=== PATIENT | female | born 1975 | race Two or more races ===

== ENCOUNTER 2024-09-07 12:11 | Emergency (ER) | payer BC ==
[~2024-09-07] VITALS: Ht 160 cm; Wt 102.5 kg
[2024-09-07 13:08] VITALS: BP 148/75; O2SAT 97
[2024-09-07] MEDS ORDERED: ALTACE5 MG PO (13:13)
[2024-09-07] MEDS ORDERED: FINOFIBRATE PO (13:13)
[2024-09-07] MEDS ORDERED: HYDRODIURIL12.5 MG PO (13:13)
[2024-09-07] MEDS ORDERED: CLARITIN10 MG PO (13:14)
[2024-09-07] MEDS ORDERED: VALACYCLOVIR500 MG PO (13:14)
[2024-09-07] MEDS ORDERED: LYRICA100 MG PO (13:14)
[2024-09-07] MEDS ORDERED: OMEGA-31000 MG PO (13:14)
[2024-09-07] MEDS ORDERED: IRON236 MG PO (13:15)
[2024-09-07] MEDS ORDERED: METFORMIN HCL500 MG PO (13:15)
[2024-09-07] MEDS ORDERED: PROAIR RESPICL90 MCG IH (13:16)
[2024-09-07 16:36] LABS: HEMATOCRIT 41.9 % (36.0-45.00); HEMOGLOBIN 13.8 g/dL (12.0-15.00); MEAN CELL VOLUME 85.3 fL (80.00-100.00); MEAN CORPUSCULAR HGB CONC 32.9 g/dl (32.0-36.0); PLATELET COUNT 299 K/uL (150-450); RED BLOOD COUNT 4.91 M/uL (4.00-6.00); RED CELL DISTRIBUTION WIDTH 16.6 % (11.5-14.5)
[2024-09-07] MEDS ORDERED: GILTUSS COUGH-118 M1 PO (18:02)
[2024-09-07] MEDS ORDERED: OSEL75CA PO (18:02)
== END 2024-09-07 18:46 | disposition home or self-care (01) ==
LOC: ER 12:13
PROVIDERS: Preventive Medicine Public Health & General Preventive Medicine
DX: J10.1 Influenza due to other identified influenza virus with other respiratory manifestations (principal); Z20.822 Contact with and (suspected) exposure to COVID-19; Z88.5 Allergy status to narcotic agent